=== PATIENT | male | born 1985 | race Caucasian/White ===

== ENCOUNTER 2024-09-03 18:01 | Emergency (ER) | payer BC, SELFPAY ==
--- OUTSIDE RECORDS SUMMARY | 2024-09-03 18:03 | XMS_ITS | Clinical Summary ---
Author Organization [facility] Address [address] [place] [address] Care Team Providers Care Naval Science Teacher Name Role Phone Sekou White MD Primary Care Provider [phone] Allergies No known active allergies Medications No known medications Immunizations Name Administration Dates Next Due Anthrax 01/31/2009,08/26/2008,07/19/2008 DPT 04/12/1988 DTaP 12/14/1991 Hep A/Hep B 10/09/2007 Hep B, adolescent or pediatric 10/13/1998,1997,06/09/1998 Hepatitis A - Adult 07/19/2008,03/24/2006 Influenza, split 04/25/2009, 8,07/13/2007,08/09 Influenza, split virus, trivalent, PF 09/08/2016 ,06/28/2015 MMR 12/14/1991,02/16/1988 Meningococcal MPSV4 03/21/2006 Novel Influenza [id number] 07/01/2009 Novel Influenza [id number], Uns pecified Formulation 06/28/2009 Polio, Oral 03/21/2006,04/12/1988 Polio, Unspecified Formulation 12/14/1991 TD Adult, Unspecified Formulation 08/09/2008 Tdap 12/17/2015,10/02/2007,03/21/2006 Typhoid, Vi capsular polysac charide vaccine 07/19/2008 Vaccinia (smallpox) 09/26/2008 Family History Relation Status Comments Brother 1 Alive Brother 2 Alive Social History Tobacco Use Types Packs/Day Years Used Date Smoking Tobacco: Some Days Cigarettes Smokeless Tobacco: Never Tobacco Cessation:Ready to Q uit: Not Asked Alcohol Use Standard Drinks/Week Comments Yes 12 (1 standard drink = 0.6 oz pu re alcohol) PHQ-2 Answer Date Recorded Initial depression screening score: 0 08/19/2023 Inadequate Housing Answer Date Recorded Social Determinants: Housing (Overall Score Help er) 0 08/28/2021 Sex and Gender Information Value Date Recorded Sex Assigned at Not on file Gender Identity Not on file Sexual Orientation Not on file Job Start Date Occupation Industry Not on file Not on file Not on file Obstetrics History Last Filed Vital Signs Vital Sign Reading Time Taken Comments Blood Pressure 136/68 08/19/2023 4:13 PM VOCAL ARTIST Pulse 84 08/19/2023 4:13 PM VOCAL ARTIST Temperature 36.6 ??C (97.9 ??F) 08/29/2021 8:57 AM CS T Respiratory Rate 18 08/19/2023 4:13 PM VOCAL ARTIST Oxygen Saturation 97% 08/19/2023 4:13 PM VOCAL ARTIST Inhaled Oxygen Concentration - - Weight 88.2 kg (194 lb 6.4 oz) 08/19/2023 4:13 P M VOCAL ARTIST Height 175.3 cm (5' 9 ) 08/19/2023 4:13 PM VOCAL ARTIST Body Mass Index 28.71 08/19/2023 4:13 PM VOCAL ARTIST Plan of Treatment Health Maintenance Due Date Last Done Comments Varicella Vaccine (1 of 2 - 13+ 2-dose series) 10/06/1999 COVID-19 Vaccine ( - 2023- season) 2024 Influenza Vaccine (#1) 2024 7, 06/28/2015, 07/01/2009, Additional history exists Depression Screening 08/19/2024 08/19/2023 DTaP/Tdap/Td Vaccine (7 - Td or Tdap) 12/16/2025 12/17/2015, 08/09/2008, 10/02/2007, Additional history exists Meningococcal Vaccine Aged Out 03/21/2006 No elia brandie eligible based on patient's age to complete this topic Hepatitis B Vaccine Completed 10/09/2007, 10/13/1998, 07/14/1998, Additional history exists Hepatitis A Vaccine Aged Out 07/19/2008, 10/09/2007, 03/24/2006 No longer eligible based on patient's age to complete this topic HPV Vaccine Aged Out No longer eligi ble based on patient's age to complete this topic Meningococcal Serogroup B Vaccine Aged Out No longer eligible based on patient's age to complete this topic Pneumococcal Vaccine 0-49 Aged Out No longer eligible based on patient's age to complete this topic Care Teams Naval Science Teacher Relationship Specialty Start Date End Date Sekou White MD [address] [place] [address] PCP - General Family Practice 08/29/21
--- OUTSIDE RECORDS SUMMARY | 2024-09-03 18:03 | XMS_ITS | Referral Summary ---
Author Organization [facility] Address [address] [place] [address] Care Team Providers Care Entry Engineer Name Role Phone Sekou White MD Primary Care Provider [phone] Allergies No known active allergies Medications No known medications Immunizations Name Administration Dates Next Due Anthrax 01/31/2009,08/26/2008,07/19/2008 DPT 04/12/1988 DTaP 12/14/1991 Hep A/Hep B 10/09/2007 Hep B, adolescent or pediatric 10/13/1998,1997,06/09/1998 Hepatitis A - Adult 07/19/2008,03/24/2006 Influenza, split 04/25/2009, 8,07/13/2007,08/09 Influenza, split virus, trivalent, PF 09/08/2016 ,06/28/2015 MMR 12/14/1991,02/16/1988 Meningococcal MPSV4 03/21/2006 Novel Influenza [id number] 07/01/2009 Novel Influenza [id number], Uns pecified Formulation 06/28/2009 Polio, Oral 03/21/2006,04/12/1988 Polio, Unspecified Formulation 12/14/1991 TD Adult, Unspecified Formulation 08/09/2008 Tdap 12/17/2015,10/02/2007,03/21/2006 Typhoid, Vi capsular polysac charide vaccine 07/19/2008 Vaccinia (smallpox) 09/26/2008 Social History Tobacco Use Types Packs/Day Years [...] file Not on file Not on file Last Filed Vital Signs Vital Sign Reading Time Taken Comments Blood Pressure 136/68 08/19/2023 4:13 PM WEBSPHERE ARCHITECT Pulse 84 08/19/2023 4:13 PM WEBSPHERE ARCHITECT Temperature 36.6 ??C (97.9 ??F) 08/29/2021 8:57 AM CS T Respiratory Rate 18 08/19/2023 4:13 PM WEBSPHERE ARCHITECT Oxygen Saturation 97% 08/19/2023 4:13 PM WEBSPHERE ARCHITECT Inhaled Oxygen Concentration - - Weight 88.2 kg (194 lb 6.4 oz) 08/19/2023 4:13 P M WEBSPHERE ARCHITECT Height 175.3 cm (5' 9 ) 08/19/2023 4:13 PM WEBSPHERE ARCHITECT Body Mass Index 28.71 08/19/2023 4:13 PM WEBSPHERE ARCHITECT Plan of Treatment Not on file Care Teams Entry Engineer Relationship Specialty Start Date End Date Sekou White MD [address] [place] [address] PCP - General Family Practice 08/29/21
--- OUTSIDE RECORDS SUMMARY | 2024-09-03 18:03 | XMS_ITS | Referral Summary ---
Author Organization [facility] Address [id number] [place] [address] Phone Care Team Providers Care Saxophone Assembler Name Role Phone Provider, No Pcp-No Referring Primary Care Provi brandon Unavailable Allergies No known active allergies Medications * This document contains information received from the source organization and may not represent a complete record from that organization. diclofenac (VOLTAREN) 50 MG EC tabletIndication s:bursitis Take 1 tablet by mouth 3 (Three) Times Daily With Meals for 7 days. 21 tablet 04/05/2023 Active Active Problems Patient Care Coordination No te Formatting of this note migh t be different from the original. 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 Expires 06/02/2022 Problem Noted Date Diagnosed Date Encounter for sterilization 12/23/2016 Overview (09/30/2017): [id number] Immunizations Name Administration Dates Next Due (Tdap) Tetanus & Diphtheria Toxoids / Acellular Pertussis 12/17/2015 Social History Tobacco Use Types Packs/Day Years Used Date Smoking Tobacco: Former Cigarettes Q uit: 12/16/2012 Smokeless Tobacco: Never Alcohol Use Standard Drinks/Week Comments Yes 0 (1 standard drink = 0.6 oz pur e alcohol) socially Sex and Gender Information Value Date Recorded Sex Assigned at Not on file Legal Sex Male 5:08 AM CDT Gender Identity Not on file Sexual Orientation Not on file Last Filed Vital Signs Vital Sign Reading Time Taken Comments Blood Pressure 128/80 06/22/2023 4:23 PM COST ESTIMATOR Pulse 73 06/22/2023 4:23 PM COST ESTIMATOR Temperature 36.7 ??C (98.1 ??F) 06/22/2023 4:23 PM CS T Respiratory Rate 16 12/23/2021 10:40 AM CDT Oxygen Saturation 98% 06/22/2023 4:23 PM COST ESTIMATOR Inhaled Oxygen Concentration - - Weight 81.2 kg (179 lb) 06/03/2021 8:58 AM CDT Height 175.3 cm (5' 9 ) 06/03/2021 8:58 AM CDT Body Mass Index 26.43 06/03/2021 8:58 AM CDT Plan of Treatment Not on file Insurance ANTHEM PREFERRED ANTHEM PREFERRED [address] [place] [id number] ANTHFR[employer]ISCA PREFERRED Member Subscriber Plan / Payer (Ef fective 2022-Present) Name:Jose Valle Member ID:[id number] Relation to Subscriber:Self Name:Jose Valle Subscriber ID:[id number] Payer ID:[id number] ([facility]) Type:PPO Address: [facility] [id number] [place] [phone] Care Teams Saxophone Assembler Relationship Specialty Start Date End Date NO PCP-NO REFERRING PROVIDER PCP - General 12/17/15
--- OUTSIDE RECORDS SUMMARY | 2024-09-03 18:03 | XMS_ITS | Clinical Summary ---
Author Organization [facility] Address [id number] [place] [address] Phone Care Team Providers Care Conceptor Name Role Phone Provider, No Pcp-No Referring [...] be different from the original. 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/02/2022 Problem Noted Date Diagnosed Date Encounter for sterilization 12/23/2016 Overview (09/30/2017): [id number] Immunizations Name Administration Dates Next Due (Tdap) [...] Comments Blood Pressure 128/80 06/22/2023 4:23 PM BOOKING AGENT Pulse 73 06/22/2023 4:23 PM BOOKING AGENT Temperature 36.7 ??C (98.1 ??F) 06/22/2023 4:23 PM CS T Respiratory Rate 16 12/23/2021 10:40 AM CDT Oxygen Saturation 98% 06/22/2023 4:23 PM BOOKING AGENT Inhaled Oxygen Concentration - - Weight 81.2 kg (179 lb) 06/03/2021 8:58 AM CDT Height 175.3 cm (5' 9 ) 06/03/2021 8:58 AM CDT Body Mass Index 26.43 06/03/2021 8:58 AM CDT Plan of Treatment Health Maintenance Due Date Last Done Comments MMR Vaccine (No Outreach) (1 of 1 - Standard series) 10/06/1987 Varicella Vaccine (No Outreach) (1 of 2 - 13+ 2-dose series) 10/06/1999 Human Immunodeficiency Virus (HIV) Screening 2002 COVID-19 Vaccine (2023-2 5 season) 2024 Influenza Vaccine (#1) 2024 7, 06/28/2015, 04/25/2009, Additional history exists Tetanus Vaccine 12/16/2025 12/17/2015, 01/2009, 10/02/2007, Additional history exists Zoster Recombinant Vaccine (Shingrix) (1 of 2) 2036 Hepatitis B Vaccine (No Outreach) Completed 10/09/2007, 10/13/1998, 07/14/1998, Additional history exists HIB Vaccine Aged Out No longer eligi ble based on patient's age to complete this topic HPV Vaccine Aged Out No longer eligi ble based on patient's age to complete this topic Hepatitis A Vaccine Aged Out No longe r eligible based on patient's age to complete this topic Inactivated Polio (IPV) Vaccine Aged Out No longer eligible based on patient's age to complete this topic Meningococcal ACWY vaccine Aged Out N o longer eligible based on patient's age to complete this topic Pneumococcal Vaccine: Routin e and At-Risk Aged Out No longer eligible based on patient's age to complete this topic Rotavirus Vaccine Aged Out No longer eligible based on patient's age to complete this topic Insurance * Guarantor: Jose Valle Account Type Relation to Patient Date of Phone Billing Address Personal/Family Self [address] [place] [phone] ANTHEM PREFERRED * Guarantor: Jose Valle Account Type Relation to Patient Date of Phone Billing Address Personal/Family Self [address] [place] [phone] ANTHEM PREFERRED * Guarantor: Jose Valle Account Type Relation to Patient Date of Phone Billing Address Personal/Family Self [address] [place] [phone] ANTHEM PREFERRED * Guarantor: Jose Valle Account Type Relation to Patient Date of Phone Billing Address Personal/Family Self [id number] [place] [phone] Care Teams Conceptor Relationship Specialty Start Date End Date NO PCP-NO REFERRING PROVIDER PCP - General 12/17/15
[2024-09-03 18:25] VITALS: BP 136/73; PULSE 93; RESP 20; TEMP 39; O2SAT 98
[2024-09-03 18:42] VITALS: TEMP 39
[2024-09-03] MEDS: ACETAMINOPHEN 500 MG TABLET 1000 MG PO (18:42)
[2024-09-03 18:58] LABS: EDCOVIDSCREEN Negative (Negative); EDINFLUASCREEN Positive (Negative); EDINFLUBSCREEN Negative (Negative)
--- NOTE | 2024-09-03 19:08 | ED_ITS ---
HPI - URI/Sore Throat General Chief Complaint: Upper Respiratory Infection Stated Complaint: chest cold and fever Time Seen by Provider: 09/03/24 19:11 Source: patient, RN notes reviewed and old records reviewed Mode of arrival: ambulatory Limitations: no limitations History of Present Illness HPI Narrative: 38-year-old male presents to the [facility] with complaints of chills, dry cough, runny nose for 2 days Has taken ibuprofen On arrival patient 102.2 fever, Tylenol was given. Related Data Home Medications ?Medication ?Instructions ?Recorded ?Confirmed ?Last Taken ?Type No Home Medications 09/03/24 09/03/24 Unknown History Allergies Allergy/AdvReac Type Severity Reaction Status Date / Time No Known Allergies Allergy Verified 09/03/24 18:32 Review of Systems Review of Systems: All systems reviewed & are unremarkable except as noted in HPI and below Constitutional: Constitutional: Reports as per HPI, Reports body ache(s) and Reports chills ENT: Reports as per HPI Cardiovascular: Cardiovascular: Reports no additional cardiovascular complaints, Denies chest pain and Denies dyspnea Respiratory: Respiratory: Reports as per HPI, Reports no additional respiratory complaints, Denies chest congestion, Reports cough and Denies dyspnea Musculoskeletal: Musculoskeletal: Reports no additional musculoskeletal complaints Integumentary/Breasts: Skin/Breast: Reports system reviewed and no additional complaints, except as docu PMFSH Comments At the time of my signature, I reviewed and agree with the nursing past medical, surgical, social, and family history. There is no relevant family history pertinent to the patient complaint. Exam Const: General: cooperative, no acute distress, well developed, alert, tired appearing, uncomfortable and well nourished Nutritional Appearance: well nourished Orientation/consciousness: patient oriented x3 Limitations: no limitations HENMT: Head: normal to inspection Ears: hearing grossly normal bilaterally, external ears normal, TM's normal bilaterally, EAC's normal, mastoids normal and no periauricular adenopathy Mouth: Yes Normal oral and palatal mucosa present, Yes lip normal, Yes tongue normal and Yes moist mucous membranes Throat: posterior oropharynx normal, uvula midline and no uvular edema Eyes: General: appearance normal, both eyes and all related structures Alignment and Position: alignment normal Neck: Neck: normal visual inspection, full ROM, no lymphadenopathy and no meningeal signs Chest: Chest palpation & inspection: normal inspection of the chest Resp: Effort & Inspection: normal respiratory effort and able to speak in complete sentences Auscultation: clear to auscultation bilaterally, no crackles, no rales, no rhonchi and no wheezes Cardio: Rate: regular rate Skin: General skin exam: normal color and no rashes or lesions noted Neuro: General: patient oriented x3, gait normal, moves all extremities and no meningeal signs Cognition (Neuro): normal cognition Speech: normal speech Gait exam (Neuro): Normal gait present Extrem: General: normal to inspection, full ROM, capillary refill normal and normal gait Psych: Appearance: grossly normal and well kempt Mental Status: mental status grossly normal Speech and movement: Normal speech and movement present and Clear speech present Affect: normal affect Attitude: cooperative Course Course Level of Care: Express Care Visit Vital Signs Vital signs: Vital Signs Temperature 102.2 F H 09/03/24 18:25 Pulse Rate 93 09/03/24 18:25 Respiratory Rate 20 09/03/24 18:25 Blood Pressure 136/73 09/03/24 18:25 Pulse Oximetry 98 09/03/24 18:25 Oxygen Delivery Room Air 09/03/24 18:25 Temperature 99.8 F H 09/03/24 19:20 Pulse Rate 93 09/03/24 18:25 Respiratory Rate 20 09/03/24 18:25 Blood Pressure 136/73 09/03/24 18:25 Pulse Oximetry 98 09/03/24 18:25 Oxygen Delivery Room Air 09/03/24 18:25 Reviewed MDM - URI/Sore Throat MDM Narrative Medical decision making narrative: Patient sitting in exam room. Nontoxic vitals stable. Patient in no acute distress however patient looks uncomfortable. Patient presents originally with 102.2 fever. Tylenol given, 99.8. Patient tested positive for influenza A. Patient appropriate for outpatient treatment with close follow-up. Discharge instructions reviewed with patient, as well as provided in writing per nursing staff. The instructions also include specific and strict return/GO TO THE ER as well as f/u information. All questions have been answered, and the patient deny any further questions with discharge and discharge plan. Some parts of this dictation were generated by voice recognition software and may contain typographical and/or grammatical inaccuracies. Differential Diagnosis Differential diagnosis: Likely upper respiratory infection, otitis media, sinusitis, viral infection, bronchitis and influenza Lab Data Labs: Lab Results 09/03/24 Range/Units 18:56 POC Influenza A Ag Positive (Negative) POC Influenza B Ag Negative (Negative) POC SARS CoV-2 Ag Negative (Negative) Reviewed Critical Care Time Critical Care Time Critical Care Time: No Discharge Plan Discharge Clinical Impression: Influenza A Patient Disposition: Home, Self-Care Condition: Stable Instructions: Antibiotic Form, Influenza (ED) Additional Instructions: Your rapid COVID test were negative Your rapid flu test was was positive for influenza A Your symptoms are due to a viral illness, which is not treated with antibiotics. Typically viral infections last 7-10 days, can linger for couple of weeks. It is very important to treat your symptoms. Drink plenty of water, Gatorade, Pedialyte, ice pops or Jell-O. -Alternate Tylenol and Motrin per package directions for fever or pain. You can alternate every 4 hours -Antihistamine medication such as Zyrtec/Claritin/Deepika during the day can help improve symptoms. -doing daily nasal irrigations can help relieve pressure your sinuses. Things like a Neti pot -Use Flonase twice a day for 5 days then daily to help reduce the inflammation and dry up your sinuses. -You can also use Mucinex. Be sure to drink plenty of water with this medication at least 8 ounces with every dose and it is important to drink 8 to 10 glasses of water per day. Water is a natural decongestant -Eat and drink things that are easy to swallow, like tea or soup, or popsicles. -Oral rinses such as: Salt water gargles and/or may use topical anesthetic (eg. Chloraseptic spray) or lozenges to relieve dryness or throat pain). -Frequent hand washing or hand chop saw operator is one of the best ways to prevent spread of infection. -Using a vaporizer or humidifier at night will also help thin secretions and help with coughing up phlegm. -Follow up with primary care provider in 7-10 days if condition is not improving - For new or worsening symptoms go directly to the nearest ER Patient Language: Tunisian Prescriptions: No Action No Home Medications Follow-up/Referrals: PHYSICIAN NOT ON STAFF,NONSTAFF [Primary Care Provider] - Stand Alone Forms: Work/School Release IP Time of Disposition: 19:16
[2024-09-03 19:20] VITALS: TEMP 37.7
== END 2024-09-03 19:20 | disposition home or self-care (01) ==
PROVIDERS: Emergency Provider Nurse Practitioner
DX: J10.1 Influenza due to other identified influenza virus with other respiratory manifestations (principal); Z20.822 Contact with and (suspected) exposure to COVID-19
CPT/HCPCS: 87426; 87804; 99202; A9270; G0463